=== PATIENT | female | born 1995 | race Caucasian/White ===

== ENCOUNTER → 2016-07-27 | Outpatient (CLI) | payer OTHER ==
[~2016-07-27] MED LIST: AMOXIL250 MG PO; BACTRIM DS TABL1 TA1 PO; BIRTH CONTROL PILL PO; PHENERGAN25 MG PO; PRENATAL VITAMINS PO; PYRIDIUM PO
--- NOTE | ~2016-07-27 | US6 ---
[facility] A Service of [facility] RADIOLOGY TEXT RESULTS PATIENT: KIANA HELLER LOCATION: US : [birth year] UNIT #: [id number] AGE: [address]: Andres Nick MD SEX: F ORDER DR: [id number] [facility] [address] [place], [place] [address] [id number] O MR#: [id number] Acc #: [id number] NAME: KIANA HELLER : 1995 SEX: F STUDY DATE/TIME: 07/27/2016 10:50 UNIT: US ROOM: STUDY DESCRIPTION: US Abdominal Limited Attending Physician: Andres Nick M.D. Referring Physician: Andres Nick M.D. Ordering Physician: Andres Nick M.D. Primary Care Physician: Eli Lopez M.D. MEDICAL IMAGING REPORT This report is preliminary unless electronic signature is present EXAM Right upper quadrant abdominal ultrasound. DATE 07/27/2016 HISTORY Epigastric pain intermittently for 3 months. Occasional nausea. COMPARISON Right upper quadrant abdominal ultrasound, 08/27/2010. FINDINGS Pancreatic tail is partially obscured by bowel gas but the visualized pancreas appears unremarkable. IVC demonstrates normal color flow. Liver demonstrates normal homogeneous echotexture without focal abnormality. Liver size is within normal limits measuring about 14.2 cm in long axis. Right kidney measures 11.3 cm in length without focal cortical lesion, shadowing stone, or hydronephrosis. Multiple small shadowing gallstones are present. No abnormal gallbladder wall thickening or pericholecystic inflammatory changes are identified. Common bile duct caliber is normal at 3 mm. No choledocholithiasis is seen. No intrahepatic biliary ductal dilation is evident. No ascites is seen. IMPRESSION 1. Multiple small shadowing gallstones. No sonographic evidence of cholecystitis or abnormal biliary dilation. 2. The remainder of the examination is within normal limits. Dictated by... Kat Rodriguez M.D. [facility] A Service of [facility] RADIOLOGY TEXT RESULTS PATIENT: KIANA HELLER LOCATION: [facility] : [birth year] UNIT #: [id number] AGE: [address]: Andres Nick MD SEX: F ORDER DR: THIS IS AN ELECTRONICALLY VERIFIED REPORT Kat Rodriguez M.D. at 07/28/2016 9:40 AM SILAS/zoraida TD: 07/27/2016 14:13 JOB #: [id number] MEDICAL IMAGING REPORT Page 1 of 1 COPY
== END | disposition home or self-care (01) ==
LOC: CGUS 10:16
DX: R11.2 Nausea with vomiting, unspecified (principal); R10.13 Epigastric pain; K80.20 Calculus of gallbladder without cholecystitis without obstruction
CPT/HCPCS: 76705

== ENCOUNTER → 2016-08-25 | Day surgery (SDC) | payer OTHER ==
--- NOTE | ~2016-08-25 | OR ---
Unit #: [id number] #: [id number] Patient: KIANA HELLER [id number] [address] [address] [id number] O MR#: [id number] NAME: KIANA HELLER. ROOM: Date of Procedure: 08/25/2016 Admission Date: 08/25/2016 Surgeon: Andres Nick M.D. : 1995 Attending Physician: Andres Nick M.D. Primary Care Physician: Eli Lopez M.D. OPERATIVE REPORT PROCEDURE PERFORMED Esophagogastroduodenoscopy with biopsies. INDICATIONS FOR PROCEDURE The patient with persistent epigastric pain, undergoing evaluation with upper endoscopy. MEDICATIONS Monitored anesthesia. POSTOPERATIVE FINDINGS 1. Mild gastroduodenitis. Biopsies were taken looking for H pylori. 2. Normal esophagus. PLAN Symptomatic treatment for now. Follow up on the pathology report. DESCRIPTION OF PROCEDURE The patient was explained of the procedure, risks, and benefits along with the risks and benefits of anesthesia. She was brought to the endoscopy room. Propofol anesthesia was given. Bite block was placed. The scope was passed down the mouth into esophagus, stomach, duodenum, and distal duodenum. Findings as described. Biopsies were taken. Gently, I pulled the scope out of the patient's mouth. She tolerated it well. Dictated by... Kiara Saravia/nessa TD: 08/25/2016 15:20 JOB #: [id number] Unit #: [id number] #: [id number] Patient: KIANA HELLER OPERATIVE REPORT Page 1 of 1 X nAdres Nick MD X PROCEDURE OPERATIVE NOTE
[2016-08-25 10:00] LABS: BASOPHIL% 0.3 % (0-2.5); DIFF IND NO; EOSINOPHIL% 0.6 % (0.0-7.0); HEMATOCRIT 43.4 % (35.0-45.0); LYMPHOCYTE# 3.6 X10e3 (1.0-3.5); LYMPHOCYTE% 49.9 % (17.0-45.0); MEAN CELL VOLUME 91.3 FL (83-96); MEAN CORPUSCULAR HEMOGLOBIN 29.4 PG (28-34); MEAN CORPUSCULAR HGB CONC 32.2 g/dL (30-36); MEAN PLATELET VOLUME 8.1 FL (6.5-11.5); MONOCYTE# 0.5 X10e3 (0-1.0); MONOCYTE% 7.2 % (3.0-12.0); PLATELET COUNT 193 X10e3 (140-420); RED BLOOD COUNT 4.76 X10e (3.90-5.30); RED CELL DISTRIBUTION WIDTH 13.4 % (11.0-15.5); WHITE BLOOD COUNT 7.2 X10e3 (4.0-10.5)
[2016-08-25 10:28] LABS: ALBUMIN SERUM 3.9 g/dL (3.5-5.0); BILIRUBIN,TOTAL 0.7 mg/dL (0.2-2.0); CALCIUM SERUM 8.8 mg/dL (8.4-10.2); CREATININE SERUM 0.5 mg/dL (0.6-1.4); GLOM FILT RATE Estimated 138.4 mL/min (>60); POTASSIUM 3.9 mmol/L (3.5-5.1); PROTEIN TOTAL SERUM 6.8 g/dL (6.0-8.3)
== END | disposition home or self-care (01) ==
LOC: COPS 07:57
PROVIDERS: Internal Medicine
DX: K29.50 Unspecified chronic gastritis without bleeding (principal); K29.80 Duodenitis without bleeding; F17.210 Nicotine dependence, cigarettes, uncomplicated; Z88.1 Allergy status to other antibiotic agents; Z79.899 Other long term (current) drug therapy
CPT/HCPCS: 80053; 85025; 88305; 88312